=== PATIENT | female | born 1995 | race Caucasian/White ===

== ENCOUNTER → 2016-06-01 | Outpatient (CLI) | payer SELFPAY ==
[~2016-06-01] MED LIST: LIDOCAINE 1% MDV 20ML VIAL As Ordered ONE
--- NOTE | 2016-06-01 17:03 | REP ---
ULTRASOUND GUIDED LEFT GROIN BIOPSY: The procedure was performed under the direct supervision of Dr. Young. The risks and benefits of the procedure were explained to the patient and informed consent was obtained. The right groin lymph node was localized using ultrasound guidance. The skin was prepped and draped in a sterile fashion. 1% lidocaine was used as a local anesthetic. Using ultrasound guidance, a 19/20-gauge coaxial needle biopsy system was inserted and advanced into the lymph node. Six core biopsy samples were obtained and sent to the lab. The patient tolerated the procedure well and there were no immediate complications. After the appropriate amount of monitored convalescence the patient was discharged from the department. Reviewed by BAO Wei 06/02/2016 10:10 AEdited and Signed by Dmitry Young MD 06/02/2016 10:42 A
== END ==
LOC: M RADPRO 12:30
PROVIDERS: ATTEND Surgery
DX: I88.9 Nonspecific lymphadenitis, unspecified (principal); F41.9 Anxiety disorder, unspecified; F32.9 Major depressive disorder, single episode, unspecified; F17.200 Nicotine dependence, unspecified, uncomplicated; Z88.0 Allergy status to penicillin; Z79.899 Other long term (current) drug therapy